=== PATIENT | male | born 1975 | race Two or more races ===

== ENCOUNTER 2019-10-05 23:35 | Emergency (ER) | payer OTHER ==
[~2019-10-05] VITALS: Ht 188 cm; Wt 79.5 kg
[2019-10-06 02:48] VITALS: BP 124/74
== END 2019-10-06 03:02 | disposition home or self-care (01) ==
LOC: EMS 23:38
DX: T46.7X1A Poisoning by peripheral vasodilators, accidental (unintentional), initial encounter (principal); R03.0 Elevated blood-pressure reading, without diagnosis of hypertension; F17.210 Nicotine dependence, cigarettes, uncomplicated; F19.90 Other psychoactive substance use, unspecified, uncomplicated; Y92.89 Other specified places as the place of occurrence of the external cause
CPT/HCPCS: 99406